=== PATIENT | male | born 1980 | race Caucasian/White ===

== ENCOUNTER 2018-04-20 21:44 | Emergency (ER) | payer OTHER ==
--- NOTE | 2018-04-20 22:12 | EDPHY ---
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 Perform CPR at the scene he states that he was exposed to the patient's vomit blood secretions and saliva. He states he was rock climbing all day and had multiple cuts to his hands and he did stick his hand in her mouth and then got bodily fluids blood on it. He is concerned about exposure. Past Medical History: Denies medical history Past Surgical History: Denies surgical history Social History: Denies daily use of drugs alcohol tobacco. 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 Family History: Noncontributory ROS REVIEW OF SYSTEMS: A comprehensive 10 point review of systems is otherwise negative aside from elements mentioned in the history of present illness. Exam Constitutional nontoxic appearing, triage nursing summary reviewed, vital signs reviewed, awake/alert. Eyes normal conjunctivae and sclera, EOMI, PERRLA. HENT normal inspection, atraumatic, moist mucus membranes, no epistaxis, neck supple/ no meningismus, no raccoon eyes. Respiratory clear to auscultation bilaterally, normal breath sounds, no respiratory distress, no wheezing. Cardiovascular rate normal, regular rhythm, no murmur, no edema, distal pulses normal. Gastrointestinal soft, non-tender, no rebound, no guarding, normal bowel sounds, no distension, no pulsatile mass. Genitourinary no CVA tenderness. Musculoskeletal no midline vertebral tenderness, full range of motion, no calf swelling, no tenderness of extremities, no meningismus, good pulses, neurovascularly intact. Skin multiple abrasions to the dorsum of both hands from rock climbing. Neurologic awake, alert and oriented x 3, AAOx3, moves all 4 extremities equally, motor intact, sensory intact, CN II-XII intact, normal cerebellar, normal vision, normal speech. Psychiatric normal mood/affect. Heme/Lymph/Immune no lymphadenopathy. Differential Diagnosis: Includes but is not limited to in a particular order: Bodily fluid exposure, HIV precautions, hepatitis precautions Medical Decision Making: Plan for this patient will speak with Infectious Disease. Will most likely get a source blood from the traumatic patient, discussed about prophylaxis coverage. Re-evaluation: 2241: I spoke with Infectious Disease Dr. Mendez, we discussed this case in detail. Recommends rapid HIV for the source blood as well as hepatitis C viral load as well as hepatitis panel. Additionally on the patient here in the ER recommend baseline labs, rapid HIV, hepatitis panel and hepatitis B surface antigen. The patient does report that he has vaccination hepatitis. 1202AM: Patient's basic blood work has been sent. Patient will need to follow up with [facility]. Discussed at length about HIV prophylaxis and hepatitis. The source blood is negative for rapid HIV. I discussed this with the patient. He understands follow-up with [facility] for further evaluation. Return precautions discussed. Understands return emergency room if he has any change in his abrasions on his hands in terms of infection, additionally any questions or concerns and additionally follow up with [facility]. Source: Patient - Personal History Current Tetanus/Diphtheria Vaccine: Yes Current Tetanus Diphtheria and Acellular Pertussis (TDAP): Yes - Medical/Surgical History Hx Asthma: No Hx Chronic Respiratory Disease: No Hx Diabetes: No Hx Cardiac Disease: No Hx Renal Disease: No Hx Cirrhosis: No Hx Alcoholism: No Hx HIV/AIDS: No Hx Splenectomy or Spleen Trauma: No Other PMH: Lasik, femur fx, ortho sx, Bilat PE, I&D. - Social History Smoking Status: Never smoked Constitutional: Initial Vital Signs Temperature (C) 36.6 C 04/20/18 21:49 Heart Rate 85 04/20/18 21:49 Respiratory Rate 16 04/20/18 21:49 Blood Pressure 144/84 H 04/20/18 21:49 O2 Sat (%) 98 04/20/18 21:49 O2 Delivery Mode Room Air Allergies/Adverse Reactions: No Known Allergies Allergy (Unverified 04/20/18 21:52) Home Medications: Medication Instructions Recorded NK [No Known Home Meds] 04/20/18 Medical Decision Making - Data Points Laboratory Results: Laboratory Results 04/20/18 22:45 04/20/18 22:45 04/20/18 04/20/18 04/20/18 22:45 22:45 22:45 WBC 8.30 10^3/uL 10^3/uL (3.80-9.50) RBC 4.56 10^6/uL 10^6/uL (4.40-6.38) Hgb 13.2 g/dL L g/dL (13.7-17.5) Hct 39.7 % L % (40.0-51.0) MCV 87.1 fL fL (81.5-99.8) MCH 28.9 pg pg (27.9-34.1) MCHC 33.2 g/dL g/dL (32.4-36.7) RDW 12.2 % % (11.5-15.2) Plt Count 204 10^3/uL 10^3/uL (150-400) MPV 10.4 fL fL (8.7-11.7) Neut % (Auto) 60.0 % % (39.3-74.2) Lymph % (Auto) 29.5 % % (15.0-45.0) [place] % (Auto) 9.4 % % (4.5-13.0) Eos % (Auto) 0.4 % L % (0.6-7.6) Baso % (Auto) 0.5 % % (0.3-1.7) Nucleat RBC Rel Count 0.0 % % (0.0-0.2) Absolute Neuts (auto) 4.98 10^3/uL 10^3/uL (1.70-6.50) Absolute Lymphs (auto) 2.45 10^3/uL 10^3/uL (1.00-3.00) Absolute Monos (auto) 0.78 10^3/uL 10^3/uL (0.30-0.80) Absolute Eos (auto) 0.03 10^3/uL 10^3/uL (0.03-0.40) Absolute Basos (auto) 0.04 10^3/uL 10^3/uL (0.02-0.10) Absolute Nucleated RBC 0.00 10^3/uL 10^3/uL (0-0.01) Immature Gran % 0.2 % % (0.0-1.1) Immature Gran # 0.02 10^3/uL 10^3/uL (0.00-0.10) Sodium 144 mEq/L mEq/L (135-145) Potassium 4.0 mEq/L mEq/L (3.3-5.0) Chloride 104 mEq/L mEq/L (97-110) Carbon Dioxide 24 mEq/l mEq/l (22-31) Anion Gap 16 mEq/L mEq/L (8-16) BUN 24 mg/dL H mg/dL (7-23) Creatinine 0.9 mg/dL mg/dL (0.7-1.3) Estimated GFR > 60 Glucose 90 mg/dL mg/dL (70-100) Calcium 10.2 mg/dL mg/dL (8.5-10.4) Total Bilirubin 0.8 mg/dL mg/dL (0.1-1.4) AST 42 IU/L IU/L (17-59) ALT 27 IU/L IU/L (21-72) Alkaline Phosphatase 65 IU/L IU/L (38-126) Total Protein 8.5 g/dL H g/dL (6.3-8.2) Albumin 5.1 g/dL H g/dL (3.5-5.0) Hepatitis A IgM Ab Pending Hep Bs Antigen Pending Hep Bs Antibody Pending Hep B Core IgM Ab Pending Hepatitis C Antibody Pending HIV 1&2 Antibody Pending Departure - Departure Disposition: Home, Routine, Self-Care Clinical Impression: Exposure to blood Condition: Good Instructions: Body Substance Exposure (ED) Additional Instructions: 1. Return emergency room if you have any worsening symptoms questions or concerns. 2. Please follow up with [facility]. Call their for an appointment on Sunday Referrals: NONE *PRIMARY CARE P,. [Primary Care Provider] - As per Instructions [facility] (ED,. [Edm Groups for Call Sched] - As per Instructions
[2018-04-20 23:36] LABS: PLATELET COUNT 204 10^3/uL (150-400)
[2018-04-21 00:37] VITALS: BP 134/80
[2018-04-22 03:33] LABS: HEPATITIS A ANTIBODY IGM (BCH) NEGATIVE (NEGATIVE); HEPATITIS B CORE AB IGM NEGATIVE (NEGATIVE); HEPATITIS B SURFACE ANTIGEN NEGATIVE (NEGATIVE); HEPATITIS C ANTIBODY TOTAL NEGATIVE (NEGATIVE); HIV TYPE 1 AND 2 NEGATIVE (NEGATIVE)
== END 2018-04-21 00:37 | disposition home or self-care (01) ==
DX: Z77.21 Contact with and (suspected) exposure to potentially hazardous body fluids (principal)
CPT/HCPCS: G0472